=== PATIENT | female | born 1975 | race Caucasian/White ===

== ENCOUNTER 2016-06-24 17:35 | Emergency (ER) | payer MEDICAID ==
[~2016-06-24] VITALS: Ht 162.6 cm; Wt 78.0 kg
[~2016-06-24 17:35] MED LIST: BISM262T51; LEVO500T15 PO; MED4 GT; PROAIR INHALER; ROBITUSSIN
[2016-06-24] MEDS ORDERED: TETRACAINE 0.5% OPHTH DROPS 4ML BOTHEYE ONE (20:00)
[2016-06-24] MEDS ORDERED: FLUORESCEIN SODIUM 1MG/STRIP BOTHEYE ONE (20:00)
[2016-06-24 20:47] VITALS: BP 125/82
== END 2016-06-24 20:52 | disposition home or self-care (01) ==
LOC: ER 17:36
DX: S05.01XA Injury of conjunctiva and corneal abrasion without foreign body, right eye, initial encounter (principal); Z79.2 Long term (current) use of antibiotics; Z79.899 Other long term (current) drug therapy; X58.XXXA Exposure to other specified factors, initial encounter; Y93.89 Activity, other specified; Y92.9 Unspecified place or not applicable; Y99.8 Other external cause status
CPT/HCPCS: 99283; Z7610